=== PATIENT | female | born 1995 | race Caucasian/White ===

== ENCOUNTER → 2022-05-08 | Outpatient (CLI) | payer OTHER | END | disposition home or self-care (01) | LOC: LAB SHORT 11:51 | DX: N39.0 Urinary tract infection, site not specified (principal) | CPT/HCPCS: 87086 ==

== ENCOUNTER → 2023-04-09 | Outpatient (CLI) | payer BC, OTHER ==
[2023-04-09 17:31] LABS: Source, Urine Voided
[2023-04-09 18:16] LABS: BASOPHILS ABSOLUTE AUTO 0.02 K/mm3 (0.00-0.23); BASOPHILS PERCENT AUTO 0 % (0-2); EOSINOPHILS ABSOLUTE AUTO 0.08 K/mm3 (0.00-0.68); EOSINOPHILS PERCENT AUTO 1 % (0-6); Hematocrit 39.5 % (33.0-51.0); Hemoglobin 13.6 g/dL (11.5-16.0); IMMATURE GRAN ABSOLUTE AUTO 0.02 K/mm3 (0.00-0.10); IMMATURE GRAN PERCENT AUTO 0 % (0-1); LYMPHOCYTES ABSOLUTE AUTO 1.46 K/mm3 (0.84-5.20); LYMPHOCYTES PERCENT AUTO 22 % (21-46); MONOCYTES ABSOLUTE AUTO 0.49 K/mm3 (0.16-1.47); MONOCYTES PERCENT AUTO 7 % (4-13); Mean Corpuscular HGB 31.2 pg (26.0-34.0); Mean Corpuscular HGB Conc 34.4 g/dL (31.5-36.5); Mean Corpuscular Volume 91 fL (80-100); Mean Platelet Volume 9.6 fL (9.1-12.4); NEUTROPHILS ABSOLUTE AUTO 4.52 K/mm3 (1.96-9.15); NEUTROPHILS PERCENT AUTO 69 % (41-73); Platelet Count 309 K/mm3 (150-400); RDW Coefficient Variation 12.2 % (11.7-14.2); RDW Standard Deviation 40.9 fL (35.1-46.3); Red Blood Cell Count 4.36 M/mm3 (3.80-5.20); White Blood Cell Count 6.59 K/mm3 (4.00-11.30)
[2023-04-09 18:27] LABS: Amorphous Heavy (0-Heavy); Calcium Oxalate Crystals Mod /hpf
[2023-04-09 18:28] LABS: Squamous Epithelial Cells Few /hpf (Few)
[2023-04-09 18:29] LABS: Bacteria Few /hpf; Red Blood Cells, Urine Not Seen /hpf (0-2); White Blood Cells, Urine 0-2 /hpf (0-5)
[2023-04-10 10:45] LABS: G. vaginalis (DNA Probe) Negative (NEGATIVE); T. vaginalis (DNA Probe) Negative (NEGATIVE)
[2023-04-10 10:46] LABS: Candida species (DNA Probe) Negative (NEGATIVE)
[2023-04-11 04:08] LABS: HBSAG SCREEN Negative (Negative); HCV ANTIBODY Non Reactive (Non Reactive)
[2023-04-12 00:08] LABS: HIV AB/P24 AG SCREEN Non Reactive (Non Reactive)
== END ==
LOC: LAB 17:26 → LAB SHORT 17:26
PROVIDERS: Advanced Practice Midwife
DX: O23.591 Infection of other part of genital tract in pregnancy, first trimester (principal)
CPT/HCPCS: 81015; 84443; 85025; 86592; 86762; 86803; 86850; 86900; 86901; 87086; 87340; 87389; 87480; 87510; 87660

== ENCOUNTER 2023-11-17 18:48 | Inpatient (IN) | payer BC, OTHER ==
[~2023-11-17] VITALS: Ht 157.5 cm; Wt 84.5 kg
[2023-11-17] MEDS ORDERED: Lactated Ringer's 1,000 ML IV SCH ×2 (19:35→19:55)
[2023-11-17] MEDS ORDERED: Oxytocin 10 Unit / ML Vial IM SCH (19:35)
[2023-11-17] MEDS ORDERED: Bupivacaine 0.5% HCl 5 MG/ML 30MLVIAL XX SCH (19:35)
[2023-11-17] MEDS ORDERED: Castor Oil 59.146 ML BTL TOP SCH (19:35)
[2023-11-17] MEDS ORDERED: Lidocaine HCl 1% 30 ML SDV XX SCH (19:35)
[2023-11-17] MEDS ORDERED: LR Oxytocin 20 Units 1,000 ML IV SCH ×2 (19:35)
[2023-11-17] MEDS ORDERED: Misoprostol 25 MCG Tab VAG PRN (19:35)
[2023-11-17] MEDS ORDERED: Methylergonovine Maleate 0.2MG / ML 1ML Amp IM SCH (19:35)
[2023-11-17] MEDS ORDERED: Bupivacaine HCl 2.5 MG/ML 10ML P/F Injection XX SCH (19:35)
[2023-11-17] MEDS ORDERED: Lactated Ringer's 1,000 ML IV PRN ×2 (19:35→19:55)
[2023-11-17] MEDS ORDERED: Misoprostol 200 MCG Tab PR SCH (19:35)
[2023-11-17 19:41] VITALS: BP 115/69
[2023-11-17] MEDS ORDERED: FentaNYL 2mcg/ml-Bup 0.1% Epd 250 ML EPI PRN (19:55)
[2023-11-17] MEDS ORDERED: ePHEDrine Sulfate 50 MG/ML 1ML Injection XX PRN (19:55)
[2023-11-17] MEDS ORDERED: Calcium Carbonate 500 MG Tab Chew PO PRN (20:00)
[2023-11-17] MEDS ORDERED: FentaNYL Citrate 50 MCG/ML 2 ML Injection IV PRN (20:00)
[2023-11-17] MEDS ORDERED: Acetaminophen 500 MG Tab PO PRN (20:00)
[2023-11-17] MEDS ORDERED: Ondansetron HCl 2 MG / ML 2ML Vial IV PRN (20:00)
[2023-11-17 20:20] LABS: BASOPHILS ABSOLUTE AUTO 0.02 K/mm3 (0.00-0.23); BASOPHILS PERCENT AUTO 0 % (0-2); EOSINOPHILS ABSOLUTE AUTO 0.02 K/mm3 (0.00-0.68); EOSINOPHILS PERCENT AUTO 0 % (0-6); Hematocrit 29.3 % (33.0-51.0); Hemoglobin 9.5 g/dL (11.5-16.0); IMMATURE GRAN ABSOLUTE AUTO 0.06 K/mm3 (0.00-0.10); IMMATURE GRAN PERCENT AUTO 1 % (0-1); LYMPHOCYTES ABSOLUTE AUTO 1.81 K/mm3 (0.84-5.20); LYMPHOCYTES PERCENT AUTO 20 % (21-46); MONOCYTES ABSOLUTE AUTO 0.59 K/mm3 (0.16-1.47); MONOCYTES PERCENT AUTO 6 % (4-13); Mean Corpuscular HGB 26.6 pg (26.0-34.0); Mean Corpuscular HGB Conc 32.4 g/dL (31.5-36.5); Mean Corpuscular Volume 82 fL (80-100); Mean Platelet Volume 9.2 fL (9.1-12.4); NEUTROPHILS ABSOLUTE AUTO 6.71 K/mm3 (1.96-9.15); NEUTROPHILS PERCENT AUTO 73 % (41-73); NRBC ABSOLUTE 0.02 K/mm3 (0.00-0.02); NRBC Auto 0.2 /100 WBC (0.0-0.2); Platelet Count 279 K/mm3 (150-400); RDW Coefficient Variation 15.5 % (11.7-14.2); RDW Standard Deviation 46.3 fL (35.1-46.3); Red Blood Cell Count 3.57 M/mm3 (3.80-5.20); White Blood Cell Count 9.21 K/mm3 (4.00-11.30)
[2023-11-17] MEDS ORDERED: BENADRYL25 MG PO (21:38)
[2023-11-17] MEDS ORDERED: ALBU90OI INH (21:38)
[2023-11-17] MEDS ORDERED: PRENATAL TABLE1 EAC2 PO (21:39)
[2023-11-17 21:50] VITALS: BP 114/67
[2023-11-18] VITALS (17 sets, daily range): BP systolic 93–126; BP diastolic 51–81
[2023-11-18] MEDS ORDERED: Lanolin Cream TOP PRN (10:00)
[2023-11-18] MEDS ORDERED: Acetaminophen 325 MG TABLET PO PRN (10:05)
[2023-11-18] MEDS ORDERED: Witch Hazel/Glycerin PADS TOP PRN (10:05)
[2023-11-18] MEDS ORDERED: Benzocaine Topical Anesthetic Spray 60GM TOP PRN (10:05)
[2023-11-18] MEDS ORDERED: Ibuprofen 400 MG Tab PO PRN (10:05)
[2023-11-18] MEDS ORDERED: Misoprostol 200 MCG Tab PO PRN (10:05)
[2023-11-18] MEDS ORDERED: LR Oxytocin 20 Units 1,000 ML IV SCH (10:10)
[2023-11-18] MEDS ORDERED: Methylergonovine Maleate 0.2MG / ML 1ML Amp IM PRN (10:10)
[2023-11-18] MEDS ORDERED: Polyethylene Glycol 3350 17 gm PO PRN (10:10)
[2023-11-18] MEDS ORDERED: Lactated Ringer's 1,000 ML IV SCH (10:10)
[2023-11-18] MEDS ORDERED: IBUP800 PO (10:50)
[2023-11-18] MEDS ORDERED: Ketorolac Tromethamine 30mg Vial IV SCH (11:00)
--- NOTE | 2023-11-18 15:56 | NUR ---
pt reports doing well, got a little nap in, was able to get up and void a second time with no problems, encouraged for pt to call if needs anything
[2023-11-19 00:52] VITALS: BP 98/52
[2023-11-19 00:53] VITALS: BP 103/60
[2023-11-19 05:14] VITALS: BP 108/57
[2023-11-19 08:24] VITALS: BP 113/63
[2023-11-19] MEDS ORDERED: Ferrous Sulfate 325 MG Tab PO SCH (09:00)
[2023-11-19] MEDS ORDERED: Prenatal Vit/FE Fumarate/FA 1 Tab PO SCH (09:00)
[2023-11-19 11:16] VITALS: BP 130/72
--- NOTE | 2023-11-19 11:40 | NUR ---
ok home at [id number], encouraged to call with any problems, ambulated out, baby breastfeeds well, has ppfu for wednesday
== END 2023-11-19 11:40 | disposition home or self-care (01) | DRG 807 ==
LOC: OBS 18:48 → BC 18:58 → OBS 19:13 → BC 19:13
PROVIDERS: ADMIT Obstetrics & Gynecology
PROC: 10E0XZZ Delivery of Products of Conception, External Approach (ICD-10-PCS; principal; 2023-11-17)
PROC: 0HQ9XZZ Repair Perineum Skin, External Approach (ICD-10-PCS; 2023-11-17)
PROC: 10907ZC Drainage of Amniotic Fluid, Therapeutic from Products of Conception, Via Natural or Artificial Opening (ICD-10-PCS; 2023-11-17)
PROC: 3E033VJ Introduction of Other Hormone into Peripheral Vein, Percutaneous Approach (ICD-10-PCS; 2023-11-17)
DX: O48.0 Post-term pregnancy (principal); Z37.0 Single live birth; Z3A.41 41 weeks gestation of pregnancy; O99.52 Diseases of the respiratory system complicating childbirth; J45.909 Unspecified asthma, uncomplicated; O99.02 Anemia complicating childbirth; O70.0 First degree perineal laceration during delivery; O69.81X0 Labor and delivery complicated by cord around neck, without compression, not applicable or unspecified; O99.344 Other mental disorders complicating childbirth; F41.9 Anxiety disorder, unspecified; F32.A Depression, unspecified; F43.10 Post-traumatic stress disorder, unspecified; Z87.891 Personal history of nicotine dependence; Z91.040 Latex allergy status
CPT/HCPCS: 36415; 85025; 86850; 86900; 86901; 86923; A9270; J1885; J2590; J3010; J7120

== ENCOUNTER → 2025-03-28 | Outpatient (CLI) | payer OTHER ==
[~2025-03-28] MED LIST: ALBU90OI INH; BENADRYL25 MG PO; IBUP800 PO; PRENATAL TABLE1 EAC2 PO
== END ==
LOC: LAB 11:05 → LAB SHORT 11:05
DX: R30.0 Dysuria (principal)
CPT/HCPCS: 87086